=== PATIENT | male | born 1985 | race African-American/Black ===

== ENCOUNTER 2017-06-05 10:29 | Emergency (ER) | payer BC ==
[2017-06-05 11:01] VITALS: BP 130/86
[2017-06-05] MEDS ORDERED: Sodium Chloride 0.9% 10 ML Syringe FLUSH PRN ×2 (11:13→12:40)
[2017-06-05] MEDS ORDERED: Sodium Chloride 0.9% 1,000 ML IV ONE (11:13)
[2017-06-05] MEDS ORDERED: Ondansetron 4 MG/2 ML SDV IVPUSH ONE (11:13)
[2017-06-05] MEDS ORDERED: HYDROmorphone 0.5 MG/0.5 ML Syringe IVPUSH ONE ×2 (11:14→12:13)
--- NOTE | 2017-06-05 11:18 | EDM.PDOC ---
ED HPI GENERAL MEDICAL PROBLEM - General Chief Complaint: Abdominal Pain Stated Complaint: VOMITING BLOOD/STOMACH PAIN/COUGHING Time Seen by Provider: 06/05/17 11:05 Source of Information: Reports: Patient History Limitations: Reports: No Limitations - History of Present Illness INITIAL COMMENTS - FREE TEXT/NARRATIVE: Patient is a 31 year old male who presents to the E.D. complaining of severe abdominal pain, nausea, and vomiting. Patient states it came on abruptly this morning upon awakening in preparation to go to the gym. Pain is described as severe in nature generalized with waxing waning. Discomfort improves after vomiting. Patient's vomited approximately 10 times this morning. He did notice some scant blood within his emesis with initial first episode of vomiting. None since. No recent sick exposures. No diarrhea. No pain with urination, fever/ chills, chest pain, sob, or any additional complaints. Patient has not been able to keep any liquids down secondary to nausea and emesis. Abdominal Pain Score (Numeric/FACES): 10 - Related Data Allergies Allergy/AdvReac Type Severity Reaction Status Date / Time No Known Allergies Allergy Verified 06/05/17 10:51 Home Meds: Home Meds Ondansetron [Zofran ODT] 4 mg PO Q6H PRN #10 tab.dis 06/05/17 [Rx] Past Medical History - Past Health History Medical/Surgical History: Denies Medical/Surgical History Social & Family History - Family History Family Medical History: Noncontributory - Tobacco Use Smoking Status *Q: Never Smoker - Recreational Drug Use Recreational Drug Use: No ED ROS GENERAL - Review of Systems Review Of Systems: See Below Constitutional: Reports: Decreased Appetite. Denies: Fever, Chills Respiratory: Reports: No Symptoms Cardiovascular: Reports: No Symptoms GI/Abdominal: Reports: Abdominal Pain, Hematemesis (Scant), Nausea, Vomiting. Denies: Black Stool, Bloody Stool, Constipation, Diarrhea, Decreased Appetite, Difficulty Swallowing, Distension, Flatus, Hematochezia, Melena : Reports: No Symptoms Musculoskeletal: Denies: Back Pain Neurological: Denies: Dizziness, Headache ED EXAM, GI/ABD - Physical Exam Exam: See Below Exam Limited By: No Limitations General Appearance: Alert, WD/WN, Mild Distress Ears: Hearing Grossly Normal Nose: Normal Inspection Throat/Mouth: Normal Voice, No Airway Compromise Neck: Normal Inspection, Supple Respiratory/Chest: No Respiratory Distress, Lungs Clear, Normal Breath Sounds, Chest Non-Tender Cardiovascular: Normal Peripheral Pulses, Regular Rate, Rhythm GI/Abdominal Exam: Normal Bowel Sounds, Soft, Non-Tender, No Organomegaly, No Distention (Male) Exam: Deferred Extremities: Normal Inspection Neurological: Alert, Oriented, CN II-XII Intact, Normal Cognition, No Motor/ Sensory Deficits Psychiatric: Normal Affect, Normal Mood Skin Exam: Warm, Dry, Intact, Normal Color Course - Vital Signs Last Recorded V/S: Last Vital Signs Temp 97.7 F 06/05/17 10:49 Pulse 89 06/05/17 10:49 Resp 20 06/05/17 10:49 BP 130/86 06/05/17 10:49 Pulse Ox 94 L 06/05/17 10:49 - Orders/Labs/Meds Orders: Active Orders 24 hr Category Date Time Status Peripheral IV Care [RC] . DIRECTED Care 06/05/17 11:13 Active Peripheral IV Insertion Adult [OM.PC] Stat Oth 06/05/17 11:13 Ordered Labs: Laboratory Tests 06/05/17 06/05/17 06/05/17 Range/Units 11:01 11:01 14:47 WBC 3.85 L (4.23-9.07) K/mm3 RBC 7.06 H (4.63-6.08) M/mm3 Hgb 14.7 (13.7-17.5) gm/L Hct 43.3 (40.1-51.0) % MCV 61.3 L (79.0-92.2) fl MCH 20.8 L (25.7-32.2) pg MCHC 33.9 (32.2-35.5) g/dl RDW Std Deviation 35.3 (35.1-43.9) fL Plt Count 190 (163-337) K/mm3 MPV TNP Neut % (Auto) 42.0 (34.0-67.9) % Lymph % (Auto) 46.2 (21.8-53.1) % Stephens % (Auto) 9.4 (5.3-12.2) % Eos % (Auto) 1.8 (0.8-7.0) Baso % (Auto) 0.3 (0.1-1.2) % Neut # (Auto) 1.62 L (1.78-5.38) K/mm3 Lymph # (Auto) 1.78 (1.32-3.57) K/mm3 Stephens # (Auto) 0.36 (0.30-0.82) K/mm3 Eos # (Auto) 0.07 (0.04-0.54) K/mm3 Baso # (Auto) 0.01 (0.01-0.08) K/mm3 Manual Slide Review Abnormal smear Sodium 141 (136-145) mEq/L Potassium 3.6 (3.5-5.1) mEq/L Chloride 104 (98-107) mEq/L Carbon Dioxide 28 (21-32) mEq/L Anion Gap 12.6 (5-15) BUN 21 H (7-18) mg/dL Creatinine 1.1 (0.7-1.3) mg/dL Est Cr Clr Drug Dosing 103.63 mL/min Estimated GFR (MDRD) > 60 (>60) mL/min BUN/Creatinine Ratio 19.1 H (14-18) Glucose 111 H (74-106) mg/dL Calcium 9.0 (8.5-10.1) mg/dL Total Bilirubin 0.8 (0.2-1.0) mg/dL AST 29 (15-37) U/L ALT 56 (16-63) U/L Alkaline Phosphatase 70 (46-116) U/L C-Reactive Protein < 0.2 (<1.0) mg/dL Total Protein 7.5 (6.4-8.2) g/dl Albumin 4.0 (3.4-5.0) g/dl Globulin 3.5 gm/dL Albumin/Globulin Ratio 1.1 (1-2) Lipase 160 (73-393) U/L Urine Color Yellow (Yellow) Urine Appearance Clear (Clear) Urine pH 8.5 H (5.0-8.0) Ur Specific [place] 1.020 (1.005-1.030) Urine Protein Negative (Negative) Urine Glucose (UA) Negative (Negative) Urine Ketones Negative (Negative) Urine Occult Blood Negative (Negative) Urine Nitrite Negative (Negative) Urine Bilirubin Negative (Negative) Urine Urobilinogen 0.2 (0.2-1.0) Ur Leukocyte Esterase Negative (Negative) Urine RBC 0-5 (0-5) /hpf Urine WBC 0-5 (0-5) /hpf Ur Epithelial Cells 0-5 (0-5) /hpf Amorphous Sediment Few H (NOT SEEN) /hpf Urine Bacteria Few (FEW) /hpf Urine Mucus Few (FEW) /hpf Meds: Medications Discontinued Medications Generic Name Dose Route Start Last Admin Trade Name Freq PRN Reason Stop Dose Admin Fentanyl 100 mcg 06/05/17 13:06 06/05/17 13:18 Sublimaze IVPUSH 06/05/17 13:07 100 mcg ONETIME ONE Administration Fentanyl 100 mcg 06/05/17 15:27 06/05/17 15:37 Sublimaze IVPUSH 06/05/17 15:28 100 mcg ONETIME ONE Administration Hydromorphone HCl 0.5 mg 06/05/17 11:14 06/05/17 11:26 Dilaudid IVPUSH 06/05/17 11:15 0.5 mg ONETIME ONE Administration Hydromorphone HCl 0.5 mg 06/05/17 12:13 06/05/17 12:20 Dilaudid IVPUSH 06/05/17 12:14 0.5 mg ONETIME ONE Administration Sodium Chloride 1,000 mls @ 999 mls/hr 06/05/17 11:13 06/05/17 11:24 Normal Saline IV 06/05/17 12:13 999 mls/hr ONETIME ONE Administration Iopamidol 125 ml 06/05/17 12:40 06/05/17 12:46 Isovue-300 (61%) IVPUSH 06/05/17 12:41 125 ml ONETIME ONE Administration Ondansetron HCl 4 mg 06/05/17 11:13 06/05/17 11:25 Zofran IVPUSH 06/05/17 11:14 4 mg ONETIME ONE Administration Sodium Chloride 10 ml 06/05/17 11:13 06/05/17 11:25 Saline Flush FLUSH 10 ml ASDIRECTED PRN Administration Keep Vein Open Sodium Chloride 10 ml 06/05/17 12:40 06/05/17 12:46 Saline Flush FLUSH 10 ml ONETIME PRN Administration IV FLUSH - Re-Assessments/Exams Free Text/Narrative Re-Assessment/Exam: IV will be established with normal saline, Dilaudid 0.5 mg IVP, and Zofran 4 mg IVP. Initial labs and studies include CBC, chem 14, lipase, UA, CRP, x-ray of the abdomen two-view. 06/05/17 12:13 labs are pending. Patient is complaining of abdominal pain. Ordered Dilaudid 0.5 mg IVP. Nausea has subsided. 06/05/17 12:23 x-ray of the abdomen reveals few air-fluid levels, no significant stool pattern, findings questionable for gastroenteritis. Due to patient complaining of severe abdominal discomfort with nausea vomiting will go ahead and order CT of the abdomen and pelvis with oral and IV contrast. Patient unable to keep any of the oral contrast down. 06/05/17 13:06 Patient has had 1 mg of Dilaudid in total. No relief to abdominal discomfort. Ordered fentanyl 100 g IVP. 06/05/17 15:27 Patient continues to have pain to his abdomen. Ordered fentanyl 100 g IVP. 1625 Reassessment, patient is feeling much better. Pain has subsided. He has no more nausea or vomiting. He is ready to be discharged home. Departure - Departure Time of Disposition: 16:36 Disposition: Home, Self-Care 01 Condition: Good Clinical Impression: Abdominal pain Qualifiers: Abdominal location: generalized Qualified Code(s): R10.84 - Generalized abdominal pain Nausea & vomiting Qualifiers: Vomiting type: unspecified Vomiting Intractability: non-intractable Qualified Code(s): R11.2 - Nausea with vomiting, unspecified - Discharge Information Prescriptions: Ondansetron [Zofran ODT] 4 mg PO Q6H PRN #10 tab.dis PRN Reason: Nausea/Vomiting Instructions: Nausea and Vomiting, Adult, [id number], Abdominal Pain, Adult, [id number] Referrals: PCP,None [Primary Care Provider] - Forms: ED Department Discharge, ED Return to Work/School Form Additional Instructions: As discussed will have you take Zofran 1 tab every 6 hours as needed for nausea and vomiting. Suggest next 48 hours taken with a low residue diet. Push the fluids. Advance thereafter as tolerated. Return to the ED for any new or worsening symptoms. - My Orders Last 24 Hours: My Active Orders 06/05/17 11:13 Peripheral IV Care [RC] . DIRECTED Peripheral IV Insertion Adult [OM.PC] Stat - Assessment/Plan Last 24 Hours: My Active Orders 06/05/17 11:13 Peripheral IV Care [RC] . DIRECTED Peripheral IV Insertion Adult [OM.PC] Stat
--- NOTE | 2017-06-05 12:05 | CR ---
Abdomen: Supine and upright views of the abdomen were obtained. Comparison: No previous study. Several slight air-fluid levels are noted within small bowel within the left upper abdomen. Findings may represent focal ileus or less likely early small bowel obstruction. Bowel gas pattern is otherwise unremarkable. No free air is seen. Bony structures are unremarkable. No abnormal calcifications are seen. Impression: 1. Slightly prominent air-filled loops of small bowel within the left upper abdomen with air-fluid levels. Differential as described above. Diagnostic code #3
[2017-06-05] MEDS ORDERED: Iopamidol 612 MG/ML 150 ML Bottle IVPUSH ONE (12:40)
[2017-06-05] MEDS ORDERED: fentaNYL 100 MCG/2 ML SDV IVPUSH ONE ×2 (13:06→15:27)
--- NOTE | 2017-06-05 13:46 | CT ---
CT abdomen and pelvis Technique: Multiple axial sections were obtained from above the dome of the diaphragm inferiorly through the pubic symphysis. Intravenous contrast was utilized. There is only a small amount of oral contrast present within the stomach. Patient could not tolerate adequate oral contrast and therefore bowel evaluation is limited. Findings: Small portion of visualized lung bases shows nothing acute. Liver shows no focal abnormality. Spleen appears within normal limits. Kidneys show symmetric contrast enhancement without hydronephrosis or mass. Delayed images shows contrast within the distal ureters and bladder. Aorta shows no aneurysmal dilatation. No retroperitoneal adenopathy or mesenteric abnormalities are seen. No discrete pelvic mass or adenopathy is seen. Appendix not well evaluated because of the lack of oral contrast. Several loops of mildly prominent air-filled small bowel are seen within the anterior and mid abdomen which is similar to the prior plain film study. There is some fecal material being seen within a portion of this mildly dilated small bowel. This dilated bowel does not appear to represent a definite obstruction but could be caused by obstipation or ileus. No free fluid is seen. No discrete inflammatory change noted. Impression: 1. Less than optimal bowel evaluation due to patient being unable to ingest adequate oral contrast. 2. Lack of oral contrast makes evaluation of the appendix difficult. 3. Slightly dilated small bowel within the mid anterior abdomen containing some fecal material. As mentioned above, this does not appear to be obstructive but could be caused by obstipation or ileus. Follow-up plain film study could be obtained to make sure findings do not worsen. 4. No additional abnormality is definitely appreciated. Diagnostic code #3
== END 2017-06-05 17:00 | disposition home or self-care (01) ==
LOC: JD.ED 10:29
DX: R10.84 Generalized abdominal pain (principal); R11.2 Nausea with vomiting, unspecified
CPT/HCPCS: 36415; 74020; 74177; 80053; 81001; 83690; 85025; 86140; 96361; 96374; 96375; 96376; 99285; J1170; J2405; J3010; J7040; J7050; Q9967

== ENCOUNTER 2017-06-05 19:39 | Observation (INO) | payer BC ==
[2017-06-05] MEDS ORDERED: fentaNYL 100 MCG/2 ML SDV IVPUSH ONE (19:55)
[2017-06-05] MEDS ORDERED: Sodium Chloride 0.9% 1,000 ML IV ONE (19:55)
[2017-06-05] MEDS ORDERED: diphenhydrAMINE 50 MG/ML SDV IVPUSH ONE (19:56)
[2017-06-05] MEDS ORDERED: Metoclopramide 10 MG/2 ML SDV IVPUSH ONE (19:56)
--- NOTE | 2017-06-05 20:02 | EDM.PDOC ---
ED HPI GENERAL MEDICAL PROBLEM - General Chief Complaint: Abdominal Pain Stated Complaint: ABDOMINAL PAIN AND VOMITTING Time Seen by Provider: 06/05/17 19:53 Source of Information: Reports: Patient History Limitations: Reports: No Limitations - History of Present Illness INITIAL COMMENTS - FREE TEXT/NARRATIVE: Patient is a 31-year-old male who presents to the ED complaining of generalized abdominal pain with nausea and vomiting. Patient was recently evaluated in the ED by me and discharged home approximately 2 hours ago. Labs, x-ray of the abdomen, and CT of the abdomen were obtained. X-ray of the abdomen did reveal slightly prominent air-filled loops of small bowel with the left upper abdomen with air-fluid levels. Differential diagnosis includes focal ileus or less likely early small bowel obstruction. CT the abdomen and pelvis was less optimal due to patient's inability to take oral contrast. CT did reveal slightly dilated small bowel with the mid anterior abdomen containing some fecal material. This does not appear to be obstructive but could be caused by aspiration ileus. Patient was treated with IV pain medications and Zofran along with some fluids. Symptoms improved. The patient went home pain free with no nausea or vomiting. At approximately 1830 patient sipped on some Gatorade and instantly started to vomit with severe pain to his abdomen. Pain is severe sharp in nature generalized with no radiation. Abdominal Pain Score (Numeric/FACES): 10 - Related Data Allergies Allergy/AdvReac Type Severity Reaction Status Date / Time No Known Allergies Allergy Verified 06/05/17 19:49 Home Meds: Home Meds Ondansetron [Zofran ODT] 4 mg PO Q6H PRN #10 tab.dis 06/05/17 [Rx] Past Medical History - Past Health History Medical/Surgical History: Denies Medical/Surgical History Social & Family History - Family History Family Medical History: Noncontributory - Tobacco Use Smoking Status *Q: Never Smoker - Recreational Drug Use Recreational Drug Use: No ED ROS GENERAL - Review of Systems Review Of Systems: ROS reveals no pertinent complaints other than HPI. ED EXAM, GI/ABD - Physical Exam Exam: See Below Exam Limited By: No Limitations General Appearance: Alert, WD/WN, Mild Distress Ears: Hearing Grossly Normal Nose: Normal Inspection Throat/Mouth: Normal Voice, No Airway Compromise Neck: Normal Inspection, Supple Respiratory/Chest: No Respiratory Distress, Lungs Clear, Normal Breath Sounds, Chest Non-Tender Cardiovascular: Normal Peripheral Pulses, Regular Rate, Rhythm GI/Abdominal Exam: Soft, No Organomegaly, No Distention, Tender (Generalized throughout), Abnormal Bowel Sounds (Hypoactive) (Male) Exam: Deferred (No pain) Neurological: Alert, Oriented, CN II-XII Intact, Normal Cognition, No Motor/ Sensory Deficits Psychiatric: Normal Affect, Normal Mood Skin Exam: Warm, Dry, Intact, Normal Color Course - Vital Signs Last Recorded V/S: Last Vital Signs Temp 97.9 F 06/06/17 11:32 Pulse 66 06/06/17 11:32 Resp 18 06/06/17 11:32 BP 115/67 06/06/17 11:32 Pulse Ox 97 06/06/17 11:32 - Orders/Labs/Meds Orders: Active Orders 24 hr Category Date Time Status Peripheral IV Care [RC] Q2HR Care 06/05/17 19:55 Active Sodium Chloride 0.9% [Saline Flush] Med 06/05/17 19:55 Active 10 ml FLUSH ASDIRECTED PRN NG [Nasogastric Orogastric Tube Insertion] [OM.PC] Oth 06/05/17 20:52 Ordered Routine Peripheral IV Insertion Adult [OM.PC] Stat Oth 06/05/17 19:55 Ordered Medication Orders Acetaminophen (Tylenol) 650 mg RECTAL Q4H PRN PRN Reason: Pain (mild 1-3) Benzocaine (Hurricaine 20% [place]) 2 ml MUCMEM Q4H PRN PRN Reason: Throat numbing/pain from NG Enoxaparin Sodium (Lovenox) 40 mg SUBCUT Q24H [facility] Last Admin: 06/05/17 23:12 Dose: 40 mg Potassium Chloride 10 meq/ (Premix) 100 mls @ 100 mls/hr IV Q1H INO Stop: 06/06/17 17:14 Last Admin: 06/06/17 15:28 Dose: 100 mls/hr Infusion: 06/06/17 15:19 Dose: 100 mls/hr Admin: 06/06/17 14:19 Dose: 100 mls/hr Sodium Chloride (Normal Saline) 1,000 mls @ 100 mls/hr IV ASDIRECTED [facility] Last Admin: 06/06/17 14:19 Dose: 100 mls/hr Ketorolac Tromethamine (Toradol) 30 mg IV Q6H PRN PRN Reason: Pain (moderate 4-6) Stop: 06/10/17 21:41 Last Admin: 06/06/17 03:11 Dose: 30 mg Morphine Sulfate (Morphine) 2 mg IVPUSH Q2H PRN PRN Reason: Pain (severe 7-10) Stop: 06/06/17 21:44 Ondansetron HCl (Zofran) 4 mg IV Q4H PRN PRN Reason: Nausea/Vomiting Pantoprazole Sodium (Protonix Iv) 40 mg IVPUSH DAILY INO Last Admin: 06/06/17 09:32 Dose: 40 mg Admin: 06/05/17 23:12 Dose: 40 mg Sodium Chloride (Saline Flush) 10 ml FLUSH ASDIRECTED PRN PRN Reason: Keep Vein Open Last Admin: 06/05/17 20:23 Dose: 10 ml Meds: Medications Generic Name Dose Route Start Last Admin Trade Name Freq PRN Reason Stop Dose Admin Acetaminophen 650 mg 06/05/17 21:40 Tylenol RECTAL Q4H PRN Pain (mild 1-3) Benzocaine 2 ml 06/05/17 22:39 Hurricaine 20% [place] MUCMEM Q4H PRN Throat numbing/pain from NG Enoxaparin Sodium 40 mg 06/05/17 22:00 06/05/17 23:12 Lovenox SUBCUT 40 mg Q24H INO Administration Potassium Chloride 10 meq/ 100 mls @ 100 mls/hr 06/06/17 13:15 06/06/17 15:28 Premix IV 06/06/17 17:14 100 mls/hr Q1H INO Administration Sodium Chloride 1,000 mls @ 100 mls/hr 06/06/17 13:45 06/06/17 14:19 Normal Saline IV 100 mls/hr ASDIRECTED INO Administration Ketorolac Tromethamine 30 mg 06/05/17 21:40 06/06/17 03:11 Toradol IV 06/10/17 21:41 30 mg Q6H PRN Administration Pain (moderate 4-6) Morphine Sulfate 2 mg 06/05/17 21:40 Morphine IVPUSH 06/06/17 21:44 Q2H PRN Pain (severe 7-10) Ondansetron HCl 4 mg 06/05/17 21:40 Zofran IV Q4H PRN Nausea/Vomiting Pantoprazole Sodium 40 mg 06/05/17 22:00 06/06/17 09:32 Protonix Iv IVPUSH 40 mg DAILY INO Administration Sodium Chloride 10 ml 06/05/17 19:55 06/05/17 20:23 Saline Flush FLUSH 10 ml ASDIRECTED PRN Administration Keep Vein Open Discontinued Medications Generic Name Dose Route Start Last Admin Trade Name Freq PRN Reason Stop Dose Admin Diphenhydramine HCl 25 mg 06/05/17 19:56 06/05/17 20:17 Benadryl IVPUSH 06/05/17 19:57 25 mg ONETIME ONE Administration Fentanyl 100 mcg 06/05/17 19:55 06/05/17 20:22 Sublimaze IVPUSH 06/05/17 19:56 100 mcg ONETIME ONE Administration Sodium Chloride 1,000 mls @ 250 mls/hr 06/05/17 19:55 06/05/17 20:15 Normal Saline IV 06/05/17 23:54 250 mls/hr ONETIME ONE Administration Influenza Virus Vaccine 1 each 06/05/17 22:35 Pharmacy To Dose - Influenza Vaccine IM 06/05/17 22:36 ONETIME ONE Influenza Virus Vaccine 60 mcg 06/06/17 09:00 Flulaval Quad [id number] IM 06/06/17 09:01 .ONCE ONE Metoclopramide HCl 7.5 mg 06/05/17 19:56 06/05/17 20:20 Reglan IVPUSH 06/05/17 19:57 7.5 mg ONETIME ONE Administration - Re-Assessments/Exams Free Text/Narrative Re-Assessment/Exam: IV established with normal saline, Reglan 7.5 mg IVP, Benadryl 25 mg IVP, and fentanyl 100mcq IVP. We'll obtain a two-view of the abdomen to evaluate for changes in her and stool pattern. X-ray of the abdomen: Slight increasing gaseous dilation within the mid abdomen of presumed small bowel. These findings are somewhat confusing when correlating with previous exams. Current findings suggest the possibility of worsening closed loop construction, although previous CT study does not definetaly correlate to this findings. Consideration could be made for placement of nasograstric tube with oral contrast being placed and repeat CT exam performed to try and clarify. 06/05/17 20:51 , suggested admission to medical for management of gastroenteritis. Agrees with ng placement and decompression. 06/05/17 21:[address] Dwyer and Adolfo ESPINOZA, they have agreed to admit the patient for intractable abdominal pain with nausea vomiting. MCG will be obtained. MCG conducted patient meets observation status. Departure - Departure Time of Disposition: 21:38 Disposition: Refer to Observation Condition: Good Clinical Impression: Ileus, unspecified, Gastroenteritis Abdominal pain Qualifiers: Abdominal location: generalized Qualified Code(s): R10.84 - Generalized abdominal pain - Discharge Information - My Orders Last 24 Hours: My Active Orders 06/05/17 19:55 Peripheral IV Care [RC] Q2HR Sodium Chloride 0.9% [Saline Flush] 10 ml FLUSH ASDIRECTED PRN Peripheral IV Insertion Adult [OM.PC] Stat 06/05/17 20:52 NG [Nasogastric Orogastric Tube Insertion] [OM.PC] Routine - Assessment/Plan Last 24 Hours: My Active Orders 06/05/17 19:55 Peripheral IV Care [RC] Q2HR Sodium Chloride 0.9% [Saline Flush] 10 ml FLUSH ASDIRECTED PRN Peripheral IV Insertion Adult [OM.PC] Stat 06/05/17 20:52 NG [Nasogastric Orogastric Tube Insertion] [OM.PC] Routine
[2017-06-05] MEDS: Sodium Chloride 0.9% 10 ML Syringe FLUSH PRN (20:23)
--- NOTE | 2017-06-05 20:30 | CR ---
Abdomen: Supine and upright views of the abdomen were obtained. Comparison: Previous abdominal CT performed earlier in the same day as well as abdominal x-ray performed on the same day. Continued air-filled bowel is seen within the mid abdomen. This is slightly more prominent than on previous abdominal x-ray. This presumably is within small bowel. Contrast is seen within the bladder from recent CT exam. No free air is seen. Bony structures are unremarkable. Impression: 1. Slight increasing gaseous dilatation within the mid abdomen of presumed small bowel. These findings are somewhat confusing when correlating with previous exams. Current findings suggest the possibility of worsening closed-loop obstruction, although previous CT study does not definitely correlate to this finding. Consideration could be made for placement of nasogastric tube with oral contrast being placed and repeat CT exam performed to try and clarify. Diagnostic code #3
[2017-06-05] MEDS ORDERED: Acetaminophen 650 MG Supp RECTAL PRN (21:40)
[2017-06-05] MEDS ORDERED: Ketorolac 30 MG/ML SDV IV PRN (21:40)
[2017-06-05] MEDS ORDERED: Morphine 2 MG/ML Syringe IVPUSH PRN (21:40)
[2017-06-05] MEDS ORDERED: Ondansetron 4 MG/2 ML SDV IV PRN (21:40)
[2017-06-05] MEDS ORDERED: Enoxaparin 30 MG/0.3 ML Syringe SUBCUT SCH (21:45)
--- NOTE | 2017-06-05 22:06 | PCM.HP ---
H&P History of Present Illness - General Date of Service: 06/05/17 Admit Problem/Dx: Admission Diagnosis/Problem Admission Diagnosis/Problem Abdominal pain with vomiting Source of Information: Patient, Old Records, Provider, RN, RN Notes Reviewed History Limitations: Reports: No Limitations - History of Present Illness Initial Comments - Free Text/Narative: Tete Gonzalez is a 21 year old male who presented to our ED today complaining of generalized abdominal pain with nausea and vomiting. He was evaluated and the symptoms appeared to resolve so he was sent home. During this inital visit an X- ray of the abdomen did reveal slightly prominent air-filled loops of small bowel within the left upper abdomen with air-fluid levels. Differential diagnosis includes focal ileus or less likely early small bowel obstruction. CT of the abdomen and pelvis was obtained, however was less than optimal as the patient was unable to take oral contrast. CT revealed slightly dilated small bowel bowel within the mid anterior abdomen containing some fecal material. This does not appear to be obstructive but could be cause by an aspiration ileus. Labs were obtained: White blood cell 3.85 and low. Hemoglobin 14.7. Hematocrit 43.3. He is slightly microcytic at 61.3. Platelet count 190, 000. Neutrophils 42%. Sodium 191. Potassium 3.6. Chloride 104. Anion gap 12.6. BUN high at 21. Creatinine 1.1. EGFR greater than 60. AST 29 ALT 56 alkaline phosphatase 70. CRP less than 0.2. Albumin 4.0. UA was negative.. The patient was treated at that time with IV pain meds and Zofran, along with some fluids. Symptoms resolved and the patient went home without any nausea or vomiting. At approximately 1830 the patient drinks some Gatorade and started to vomit with severe pain in his abdomen. He was then he returned to the ED. Pain on his return to the ED was said to be severe and sharp in nature. He was generalized to the entire abdomen does not radiate. He was afebrile and the ED. Pulse was 89. Respirations 20. BP 139/89. Pulse ox 99% on room air. He is given Reglan 7.5 mg IVP, Benadryl 25 mg IVP, and fentanyl 100 MCG IVP. A 2 view abdominal x-ray was obtained and interpreted by Dr. Magaña as showing slightly increasing gaseous dilation was in the mid abdomen ppresumed small bowel. These findings are somewhat confusing correlating with previous exams. Current findings suggest possibility of worsening closed-loop obstruction, although previous CT study does not definitively correlate to this finding. Consideration could be made for placement of NG tube with oral contrast been placed and repeat CT scan performed to try and clarify. Surgeon instrument/control technician Dr. Fisher, was contacted by provider and suggested admission to medical floor for management of gastroenteritis. He agrees with NG placement and decompression. NG tube was placed in ED. He was subsequently admitted to the medical floor as an observation patient. He is a full code. He has no primary care provider. Abdominal Pain Score (Numeric/FACES): 0 - Related Data Allergies/Adverse Reactions: Allergies Allergy/AdvReac Type Severity Reaction Status Date / Time No Known Allergies Allergy Verified 06/05/17 19:49 Home Medications: Home Meds Ondansetron [Zofran ODT] 4 mg PO Q6H PRN #10 tab.dis 06/05/17 [Rx] Past Medical History - Past Health History Medical/Surgical History: Denies Medical/Surgical History Social & Family History - Family History Family Medical History: Noncontributory - Tobacco Use Smoking Status *Q: Never Smoker - Recreational Drug Use Recreational Drug Use: No H&P Review of Systems - Review of Systems: Review Of Systems: See Below General: Reports: No Symptoms. Denies: Fever, Chills, Malaise, Weakness HEENT: Reports: No Symptoms. Denies: Ear Pain, Eye Pain, Headaches, Sore Throat , Visual Changes Pulmonary: Reports: No Symptoms. Denies: Shortness of Breath, Wheezing, Pleuritic Chest Pain, Cough, Sputum Cardiovascular: Reports: No Symptoms. Denies: Chest Pain, Palpitations, Dyspnea on Exertion, Edema, Lightheadedness, Syncope Gastrointestinal: Reports: Abdominal Pain (Resolved currently), Decreased Appetite, Nausea, Vomiting. Denies: Black Stool, Constipation, Diarrhea, Melena Genitourinary: Reports: No Symptoms. Denies: Dysuria, Frequency, Burning, Pain , Urgency Musculoskeletal: Reports: No Symptoms. Denies: Neck Pain, Shoulder Pain, Arm Pain, Back Pain, Hand Pain, Leg Pain, Muscle Pain, Muscle Stiffness Skin: Reports: No Symptoms. Denies: Cyanosis, Jaundice, Mottled Psychiatric: Reports: No Symptoms. Denies: Confusion, Depression, Mood Lability , Anxiety Neurological: Reports: No Symptoms. Denies: Confusion, Dizziness, Headache, Numbness, Syncope, Tingling, Trouble Speaking, Difficulty Walking, Weakness Hematologic/Lymphatic: Reports: No Symptoms Immunologic: Reports: No Symptoms Review of Systems Comment:: Patient reports pain is controlled at this time. He denies any current concerns. Exam - Exam Exam: See Below - Vital Signs Vital Signs: Last Vital Signs Temp 97.8 F 06/05/17 19:49 Pulse 89 06/05/17 19:49 Resp 20 06/05/17 19:49 BP 139/89 06/05/17 19:49 Pulse Ox 99 06/05/17 19:49 Weight: 179 lb - Exam Quality Assessment: DVT Prophylaxis General: Alert, Oriented, Cooperative HEENT: Conjunctiva Clear, EACs Clear, EOMI, Hearing Intact, Mucosa Moist & [place] , Nares Patent, Normal Nasal Septum, Posterior Pharynx Clear, Pupils Equal, Pupils Reactive, TMs Clear Neck: Supple, Trachea Midline. No: JVD Lungs: Clear to Auscultation, Normal Respiratory Effort Cardiovascular: Regular Rate, Regular Rhythm GI/Abdominal Exam: Normal Bowel Sounds, Soft, Non-Tender, No Organomegaly, No Distention, No Abnormal Bruit, No Mass, Pelvis Stable (Male) Exam: Deferred Rectal (Males) Exam: Deferred Back Exam: Normal Inspection, Full Range of Motion Extremities: Normal Inspection, Normal Range of Motion, Non-Tender, No Pedal Edema, Normal Capillary Refill Peripheral Pulses: 2+: Posterior Tibial (L), Posterior Tibial (R), Dorsalis Pedis (R), 3+: Radial (L), Radial (R), Dorsalis Pedis (L) Skin: Warm, Dry, Intact Neurological: Cranial Nerves Intact Neuro Extensive - Mental Status: Alert, Oriented x3, Normal Mood/Affect, Normal Cognition, Memory Intact Neuro Extensive - Motor, Sensory, Reflexes: CN II-XII Intact, Normal Gait Psychiatric: Alert, Normal Affect, Normal Mood Physical Exam Comments:: Patient examined while still in the ED. Patient had yet to have NG tube placed. Importance of NG tube was discussed with patient and he agrees to this procedure. Explained course of care with patient. Labs are essentially unremarkable. We'll continue to monitor. *Q Meaningful Use (ADM) - VTE *Q VTE Criteria *Q: - Stroke *Q Stroke Criteria *Q: - AMI *Q AMI Criteria *Q: - Problem List (1) Abdominal pain SNOMED Code(s): 11476263 ICD Code: R10.9 - UNSPECIFIED ABDOMINAL PAIN Status: Acute Priority: High Current Visit: Yes Qualifiers: Abdominal location: generalized Qualified Code(s): R10.84 - Generalized abdominal pain (2) Gastroenteritis SNOMED Code(s): 07791649 ICD Code: K52.9 - NONINFECTIVE GASTROENTERITIS AND COLITIS, UNSPECIFIED Status: Suspected Priority: High Current Visit: Yes (3) Ileus, unspecified SNOMED Code(s): 96067677 ICD Code: K56.7 - ILEUS, UNSPECIFIED Status: Acute Priority: High Current Visit: Yes (4) Nausea & vomiting SNOMED Code(s): 29411572 ICD Code: R11.2 - NAUSEA WITH VOMITING, UNSPECIFIED Status: Acute Priority: High Current Visit: Yes Qualifiers: Vomiting type: unspecified Vomiting Intractability: non-intractable Qualified Code(s): R11.2 - Nausea with vomiting, unspecified Problem List Initiated/Reviewed/Updated: Yes Orders Last 24hrs: Active Orders 24 hr Category Date Time Status Patient Status [ADT] Routine ADT 06/05/17 21:41 Active Ambulate [RC] ASDIRECTED Care 06/05/17 21:40 Active Ambulate [RC] PER UNIT ROUTINE Care 06/05/17 21:42 Active Antiembolic Devices [RC] PER UNIT ROUTINE Care 06/05/17 21:50 Active Height and Weight [RC] DAILY Care 06/05/17 21:40 Active Intake and Output [RC] QSHIFT Care 06/05/17 21:42 Active May Shower [RC] ASDIRECTED Care 06/05/17 21:40 Active Oxygen Therapy [RC] PRN Care 06/05/17 21:41 Active Up ad Dhara [RC] ASDIRECTED Care 06/05/17 21:40 Active VTE/DVT Education [RC] PER UNIT ROUTINE Care 06/05/17 21:41 Active Vital Signs [RC] Q4H Care 06/05/17 21:41 Active Consult to Case Management [CONS] Routine Cons 06/05/17 21:40 Active Consult to Nutrition Services Assistant [CONS] Routine Cons 06/05/17 21:40 Active BASIC METABOLIC PANEL,BMP [CHEM] AM Lab 06/06/17 05:11 Ordered CBC WITH AUTO DIFF [HEME] AM Lab 06/06/17 05:11 Ordered MAGNESIUM [CHEM] AM Lab 06/06/17 05:11 Ordered Acetaminophen [Tylenol] Med 06/05/17 21:40 Ordered 650 mg RECTAL Q4H PRN Enoxaparin [Lovenox] Med 06/05/17 21:45 Ordered 30 mg SUBCUT DAILY Ketorolac [Toradol] Med 06/05/17 21:40 Ordered 30 mg IV Q6H PRN Morphine Med 06/05/17 21:40 Active 2 mg IVPUSH Q2H PRN Ondansetron [Zofran] Med 06/05/17 21:40 Active 4 mg IV Q4H PRN Pantoprazole [ProTONIX IV] Med 06/05/17 22:00 Ordered 40 mg IVPUSH DAILY Antiembolic Hose [OM.PC] Per Unit Routine Oth 06/05/17 21:42 Ordered Resuscitation Status Routine Resus Stat 06/05/17 21:40 Ordered Medication Orders Acetaminophen (Tylenol) 650 mg RECTAL Q4H PRN PRN Reason: Pain (mild 1-3) Enoxaparin Sodium (Lovenox) 30 mg SUBCUT DAILY INO Sodium Chloride (Normal Saline) 1,000 mls @ 250 mls/hr IV ONETIME ONE Stop: 06/05/17 23:54 Last Admin: 06/05/17 20:15 Dose: 250 mls/hr Ketorolac Tromethamine (Toradol) 30 mg IV Q6H PRN PRN Reason: Pain (moderate 4-6) Morphine Sulfate (Morphine) 2 mg IVPUSH Q2H PRN PRN Reason: Pain (severe 7-10) Stop: 06/06/17 21:44 Ondansetron HCl (Zofran) 4 mg IV Q4H PRN PRN Reason: Nausea/Vomiting Pantoprazole Sodium (Protonix Iv) 40 mg IVPUSH DAILY INO Sodium Chloride (Saline Flush) 10 ml FLUSH ASDIRECTED PRN PRN Reason: Keep Vein Open Last Admin: 06/05/17 20:23 Dose: 10 ml Assessment/Plan Comment:: I/P: Acute: Abdominial pain -Suspect viral gastroenteritis -Suspect illius -Failed treatment once after ED discharge -Abdominal pain, N&V -NG tube placed in ED for decompression- good output in ED -Nursing concerned tube may be displaced. X-ray ordered to confirm placement -NPO -Zofran for nausea -Hurricane spray for NG tube discomfort -IV fluids as indicated -WBC low at 3.85 -CRP >0.2 -Pain medications as indicated -Ambulate as tolerated -General surgery consulted in ED and report pt. can be medically managed at this point Chronic: None Plan: Admit to medical floor for observation CM/SW for discharge planning Routine AM labs DVT/PE prophylaxis GI prophylaxis Patient is very mobile - hold off PT/OT for now Other orders as indicated above Code status: Full Code; No PCP.
[2017-06-05] MEDS ORDERED: Benzocaine 20% Oral Spray 59.2 ML Canister MUCMEM PRN (22:39)
[2017-06-05] MEDS: Pantoprazole 40 MG Vial IVPUSH SCH (23:12)
[2017-06-05] MEDS: Enoxaparin 40 MG/0.4 ML Syringe SUBCUT SCH (23:12)
--- NOTE | 2017-06-06 08:21 | CR ---
Chest: Portable view of the chest is obtained. Comparison: No prior study. Heart size and mediastinum are normal. Nasogastric tube is seen with tip being coiled within the stomach. Lungs are clear. Bony structures are grossly intact. Impression: 1. Nasogastric tube in satisfactory position. 2. Nothing acute is appreciated on portable chest x-ray. Diagnostic code #2 I agree with preliminary report issued by [facility] ([facility] preliminary report dictated on 06/06/17, 12:26 AM Central Time)
[2017-06-06] MEDS ORDERED: FLU Vacc QS 2017-18 (6mos UP)/PF 60 MCG/0.5 ML Syringe IM ONE (09:00)
[2017-06-06] MEDS: Pantoprazole 40 MG Vial IVPUSH SCH (09:32)
[2017-06-06] MEDS: Potassium Chloride 10 MEQ in Premix Bag 1 BAG IV SCH ×4 (14:19→17:28)
[2017-06-06] MEDS: Sodium Chloride 0.9% 1,000 ML IV SCH ×2 (14:19→23:56)
--- NOTE | 2017-06-06 15:54 | PCM.PN ---
<Adolfo Brumfield - Last Filed: 06/06/17 15:48> - General Info Date of Service: 06/06/17 Admission Dx/Problem (Free Text): Admission Diagnosis/Problem Admission Diagnosis/Problem Abdominal pain with vomiting Functional Status: Reports: Pain Controlled, Tolerating Diet, Ambulating, Urinating. Denies: New Symptoms - Review of Systems General: Reports: No Symptoms HEENT: Reports: No Symptoms Pulmonary: Reports: No Symptoms Cardiovascular: Reports: No Symptoms Gastrointestinal: Reports: No Symptoms Genitourinary: Reports: No Symptoms Musculoskeletal: Reports: No Symptoms Skin: Reports: No Symptoms Neurological: Reports: No Symptoms Psychiatric: Reports: No Symptoms Systems Review Comment:: Patient has no complaint at this time. Denies any abdominal pain. He has been eating ice chips for a few hours now with no abdominal pain. His NG tube came out throughout the night. He is unsure how it came out. - Patient Data Vitals - Most Recent: Last Vital Signs Temp 97.9 F 06/06/17 11:32 Pulse 66 06/06/17 11:32 Resp 18 06/06/17 11:32 BP 115/67 06/06/17 11:32 Pulse Ox 97 06/06/17 11:32 Weight - Most Recent: 77.156 kg I&O - Last 24 Hours: Intake & Output 06/06/17 06/06/17 06/06/17 06:59 14:59 22:59 Intake Total 0 Output Total 400 Balance -400 Lab Results Last 24 Hours: Laboratory Results - last 24 hr 06/06/17 06/06/17 06/06/17 Range/Units 05:06 05:06 05:06 WBC 8.27 (4.23-9.07) K/mm3 RBC 6.60 H (4.63-6.08) M/mm3 Hgb 13.7 (13.7-17.5) gm/L Hct 40.2 (40.1-51.0) % MCV 60.9 L (79.0-92.2) fl MCH 20.8 L (25.7-32.2) pg MCHC 34.1 (32.2-35.5) g/dl RDW Std Deviation 34.2 L (35.1-43.9) fL Plt Count 191 (163-337) K/mm3 MPV TNP Neut % (Auto) 74.3 H (34.0-67.9) % Lymph % (Auto) 17.4 L (21.8-53.1) % [place] % (Auto) 8.2 (5.3-12.2) % Eos % (Auto) 0 L (0.8-7.0) Baso % (Auto) 0.0 L (0.1-1.2) % Neut # (Auto) 6.14 H (1.78-5.38) K/mm3 Lymph # (Auto) 1.44 (1.32-3.57) K/mm3 [place] # (Auto) 0.68 (0.30-0.82) K/mm3 Eos # (Auto) 0.00 L (0.04-0.54) K/mm3 Baso # (Auto) 0.00 L (0.01-0.08) K/mm3 Manual Slide Review Abnormal smear Sodium 142 (136-145) mEq/L Potassium 3.3 L (3.5-5.1) mEq/L Chloride 106 (98-107) mEq/L Carbon Dioxide 24 (21-32) mEq/L Anion Gap 15.3 H (5-15) BUN 11 (7-18) mg/dL Creatinine 1.0 (0.7-1.3) mg/dL Est Cr Clr Drug Dosing 114.00 mL/min Estimated GFR (MDRD) > 60 (>60) mL/min BUN/Creatinine Ratio 11.0 L (14-18) Glucose 104 (74-106) mg/dL Calcium 8.9 (8.5-10.1) mg/dL Magnesium 1.8 (1.8-2.4) mg/dl C-Reactive Protein < 0.2 (<1.0) mg/dL Med Orders - Current: Current Medications Acetaminophen (Tylenol) 650 mg RECTAL Q4H PRN PRN Reason: Pain (mild 1-3) Benzocaine (Hurricaine 20% Novi) 2 ml MUCMEM Q4H PRN PRN Reason: Throat numbing/pain from NG Enoxaparin Sodium (Lovenox) 40 mg SUBCUT Q24H INO Last Admin: 06/05/17 23:12 Dose: 40 mg Potassium Chloride 10 meq/ (Premix) 100 mls @ 100 mls/hr IV Q1H INO Stop: 06/06/17 17:14 Last Admin: 06/06/17 15:28 Dose: 100 mls/hr Sodium Chloride (Normal Saline) 1,000 mls @ 100 mls/hr IV ASDIRECTED [facility] Last Admin: 06/06/17 14:19 Dose: 100 mls/hr Ketorolac Tromethamine (Toradol) 30 mg IV Q6H PRN PRN Reason: Pain (moderate 4-6) Stop: 06/10/17 21:41 Last Admin: 06/06/17 03:11 Dose: 30 mg Morphine Sulfate (Morphine) 2 mg IVPUSH Q2H PRN PRN Reason: Pain (severe 7-10) Stop: 06/06/17 21:44 Ondansetron HCl (Zofran) 4 mg IV Q4H PRN PRN Reason: Nausea/Vomiting Pantoprazole Sodium (Protonix Iv) 40 mg IVPUSH DAILY [facility] Last Admin: 06/06/17 09:32 Dose: 40 mg Sodium Chloride (Saline Flush) 10 ml FLUSH ASDIRECTED PRN PRN Reason: Keep Vein Open Last Admin: 06/05/17 20:23 Dose: 10 ml Discontinued Medications Diphenhydramine HCl (Benadryl) 25 mg IVPUSH ONETIME ONE Stop: 06/05/17 19:57 Last Admin: 06/05/17 20:17 Dose: 25 mg Fentanyl (Sublimaze) 100 mcg IVPUSH ONETIME ONE Stop: 06/05/17 19:56 Last Admin: 06/05/17 20:22 Dose: 100 mcg Sodium Chloride (Normal Saline) 1,000 mls @ 250 mls/hr IV ONETIME ONE Stop: 06/05/17 23:54 Last Admin: 06/05/17 20:15 Dose: 250 mls/hr Influenza Virus Vaccine (Pharmacy To Dose - Influenza Vaccine) 1 each IM ONETIME ONE Stop: 06/05/17 22:36 Influenza Virus Vaccine (Flulaval Quad [id number]) 60 mcg IM .ONCE ONE Stop: 06/06/17 09:01 Metoclopramide HCl (Reglan) 7.5 mg IVPUSH ONETIME ONE Stop: 06/05/17 19:57 Last Admin: 06/05/17 20:20 Dose: 7.5 mg - Exam Quality Assessment: DVT Prophylaxis General: Alert, Oriented, Cooperative HEENT: Pupils Equal, Pupils Reactive, Mucous Membr. Moist/[place] Neck: Supple, Trachea Midline. No: JVD Lungs: Clear to Auscultation, Normal Respiratory Effort Cardiovascular: Regular Rate, Regular Rhythm, No Murmurs GI/Abdominal Exam: Normal Bowel Sounds, Soft, Non-Tender, No Organomegaly, No Distention, No Abnormal Bruit, No Mass, Pelvis Stable (Male) Exam: Deferred Back Exam: Normal Inspection, Full Range of Motion Extremities: Normal Inspection, Normal Range of Motion, Non-Tender, No Pedal Edema, Normal Capillary Refill, Arm Pain (Mild- From IV potassium. I advised patient this is a common complaint. IV is patent and running well.) Peripheral Pulses: 3+: Radial (L), Radial (R), Posterior Tibial (L), Posterior Tibial (R), Dorsalis Pedis (L), Dorsalis Pedis (R) Skin: Warm, Dry, Intact Neurological: No New Focal Deficit Psy/Mental Status: Alert, Normal Affect, Normal Mood Physical Findings Comments:: Patient is examined while sitting in hospital bed. He is not currently having any abdominal pain. He was started on ice chips earlier and these have been well-tolerated. He has been walking frequently. We will advance his diet slowly, as I'm concerned he will regress simply go to rapidly. Because the patient is improving I will hold off on the CT scan of his abdomen. We were considering a CT scan with contrast this morning, as the patient was unable to tolerate the contrast in the ED last night. We will continue to advance his diet slowly and if he were to regress we would at that time consider the CT scan as a priority. His potassium was found to be 3.3 today. We has been supplementing this via IV, as the patient was nothing by mouth earlier. Patient will likely need to be monitored throughout the night and I'm hopeful for discharge tomorrow, pending the patient is able to tolerate his advanced diet. - Problem List & Annotations (1) Abdominal pain SNOMED Code(s): 43582804 Code(s): R10.9 - UNSPECIFIED ABDOMINAL PAIN Status: Acute Priority: High Current Visit: Yes QualifierTitle: Abdominal location: generalized Qualified Code(s): R10.84 - Generalized abdominal pain (2) Gastroenteritis SNOMED Code(s): 28469649 Code(s): K52.9 - NONINFECTIVE GASTROENTERITIS AND COLITIS, UNSPECIFIED Status: Suspected Priority: High Current Visit: Yes (3) Ileus, unspecified SNOMED Code(s): 42174842 Code(s): K56.7 - ILEUS, UNSPECIFIED Status: Acute Priority: High Current Visit: Yes (4) Nausea & vomiting SNOMED Code(s): 36096544 Code(s): R11.2 - NAUSEA WITH VOMITING, UNSPECIFIED Status: Resolved Priority: High Current Visit: Yes QualifierTitle: Vomiting type: unspecified Vomiting Intractability: non- intractable Qualified Code(s): R11.2 - Nausea with vomiting, unspecified (5) Hypokalemia SNOMED Code(s): 78102345 Code(s): E87.6 - HYPOKALEMIA Status: Acute Priority: High Current Visit : Yes - Problem List Review Problem List Initiated/Reviewed/Updated: Yes - My Orders Last 24 Hours: My Active Orders 06/05/17 21:40 Ambulate [RC] ASDIRECTED Height and Weight [RC] 28 December Shower [RC] ASDIRECTED Up ad Dhara [RC] ASDIRECTED Consult to Case Management [CONS] Routine Consult to Patent Paralegal [CONS] Routine Acetaminophen [Tylenol] 650 mg RECTAL Q4H PRN Ketorolac [Toradol] 30 mg IV Q6H PRN Morphine 2 mg IVPUSH Q2H PRN Ondansetron [Zofran] 4 mg IV Q4H PRN Resuscitation Status Routine 06/05/17 21:41 Patient Status [ADT] Routine Oxygen Therapy [RC] PRN VTE/DVT Education [RC] DAILY Vital Signs [RC] 00,04,08,12,16,20 06/05/17 21:42 Intake and Output [RC] 04,16 Antiembolic Hose [OM.PC] Per Unit Routine 06/05/17 21:50 Antiembolic Devices [RC] BID 06/05/17 22:00 Enoxaparin [Lovenox] 40 mg SUBCUT Q24H Pantoprazole [ProTONIX IV] 40 mg IVPUSH DAILY 06/05/17 22:39 Benzocaine [Hurricaine 20% Novi] 2 ml MUCMEM Q4H PRN 06/06/17 13:15 Potassium Chloride [KCl 10 MEQ in Water 100 ML] 10 meq Premix Bag 1 bag IV Q1H 06/06/17 13:45 Sodium Chloride 0.9% [Normal Saline] 1,000 ml IV ASDIRECTED 06/06/17 Dinner Clear Liquid Diet [DIET] - Plan Plan:: I/P: Acute: Abdominial pain - Improved -Suspect viral gastroenteritis -Suspect illius -Failed treatment once after ED discharge -Abdominal pain, N&V- improved -NG tube placed in ED for decompression- good output in ED -Tube was inadvertently pulled throughout night by patient. -At this time I feel the patient is doing well and we will hold off on replacing NG tube -NPO --> Given ice chips this AM and tolerated. Will advance diet to clear liquids. -Zofran for nausea -Hurricane spray for NG tube discomfort - DC'd -IV fluids as indicated -WBC low at 3.85-->8.27 -CRP >0.2 -Pain medications as indicated -Ambulate as tolerated -General surgery consulted in ED and report pt. can be medically managed at this point Hypokalemia -Potassium 3.3 today -Will supplement as ordered. Chronic: None Plan: Admit to medical floor for observation CM/SW for discharge planning Routine AM labs DVT/PE prophylaxis GI prophylaxis Patient is very mobile - hold off PT/OT for now Other orders as indicated above Code status: Full Code; No PCP. <Valerie Gan - Last Filed: 06/06/17 18:48> - Patient Data Vitals - Most Recent: Last Vital Signs Temp 36.4 C 06/06/17 16:27 Pulse 69 06/06/17 16:27 Resp 18 06/06/17 16:27 BP 134/64 06/06/17 16:27 Pulse Ox 99 06/06/17 16:27 I&O - Last 24 Hours: Intake & Output 06/06/17 06/06/17 06/06/17 06:59 14:59 22:59 Intake Total 0 611 Output Total 400 Balance -400 611 Lab Results Last 24 Hours: Laboratory Results - last 24 hr 06/06/17 06/06/17 06/06/17 Range/Units 05:06 05:06 05:06 WBC 8.27 (4.23-9.07) K/mm3 RBC 6.60 H (4.63-6.08) M/mm3 Hgb 13.7 (13.7-17.5) gm/L Hct 40.2 (40.1-51.0) % MCV 60.9 L (79.0-92.2) fl MCH 20.8 L (25.7-32.2) pg MCHC 34.1 (32.2-35.5) g/dl RDW Std Deviation 34.2 L (35.1-43.9) fL Plt Count 191 (163-337) K/mm3 MPV TNP Neut % (Auto) 74.3 H (34.0-67.9) % Lymph % (Auto) 17.4 L (21.8-53.1) % [place] % (Auto) 8.2 (5.3-12.2) % Eos % (Auto) 0 L (0.8-7.0) Baso % (Auto) 0.0 L (0.1-1.2) % Neut # (Auto) 6.14 H (1.78-5.38) K/mm3 Lymph # (Auto) 1.44 (1.32-3.57) K/mm3 [place] # (Auto) 0.68 (0.30-0.82) K/mm3 Eos # (Auto) 0.00 L (0.04-0.54) K/mm3 Baso # (Auto) 0.00 L (0.01-0.08) K/mm3 Manual Slide Review Abnormal smear Sodium 142 (136-145) mEq/L Potassium 3.3 L (3.5-5.1) mEq/L Chloride 106 (98-107) mEq/L Carbon Dioxide 24 (21-32) mEq/L Anion Gap 15.3 H (5-15) BUN 11 (7-18) mg/dL Creatinine 1.0 (0.7-1.3) mg/dL Est Cr Clr Drug Dosing 114.00 mL/min Estimated GFR (MDRD) > 60 (>60) mL/min BUN/Creatinine Ratio 11.0 L (14-18) Glucose 104 (74-106) mg/dL Calcium 8.9 (8.5-10.1) mg/dL Magnesium 1.8 (1.8-2.4) mg/dl C-Reactive Protein < 0.2 (<1.0) mg/dL Med Orders - Current: Current Medications Acetaminophen (Tylenol) 650 mg RECTAL Q4H PRN PRN Reason: Pain (mild 1-3) Benzocaine (Hurricaine 20% Novi) 2 ml MUCMEM Q4H PRN PRN Reason: Throat numbing/pain from NG Enoxaparin Sodium (Lovenox) 40 mg SUBCUT Q24H [facility] Last Admin: 06/05/17 23:12 Dose: 40 mg Sodium Chloride (Normal Saline) 1,000 mls @ 100 mls/hr IV ASDIRECTED [facility] Last Admin: 06/06/17 14:19 Dose: 100 mls/hr Ketorolac Tromethamine (Toradol) 30 mg IV Q6H PRN PRN Reason: Pain (moderate 4-6) Stop: 06/10/17 21:41 Last Admin: 06/06/17 03:11 Dose: 30 mg Morphine Sulfate (Morphine) 2 mg IVPUSH Q2H PRN PRN Reason: Pain (severe 7-10) Stop: 06/06/17 21:44 Ondansetron HCl (Zofran) 4 mg IV Q4H PRN PRN Reason: Nausea/Vomiting Pantoprazole Sodium (Protonix Iv) 40 mg IVPUSH DAILY [facility] Last Admin: 06/06/17 09:32 Dose: 40 mg Sodium Chloride (Saline Flush) 10 ml FLUSH ASDIRECTED PRN PRN Reason: Keep Vein Open Last Admin: 06/05/17 20:23 Dose: 10 ml Discontinued Medications Diphenhydramine HCl (Benadryl) 25 mg IVPUSH ONETIME ONE Stop: 06/05/17 19:57 Last Admin: 06/05/17 20:17 Dose: 25 mg Fentanyl (Sublimaze) 100 mcg IVPUSH ONETIME ONE Stop: 06/05/17 19:56 Last Admin: 06/05/17 20:22 Dose: 100 mcg Sodium Chloride (Normal Saline) 1,000 mls @ 250 mls/hr IV ONETIME ONE Stop: 06/05/17 23:54 Last Admin: 06/05/17 20:15 Dose: 250 mls/hr Potassium Chloride 10 meq/ (Premix) 100 mls @ 100 mls/hr IV Q1H [facility] Stop: 10/11/17 17:14 Last Admin: 06/06/17 17:28 Dose: 100 mls/hr Influenza Virus Vaccine (Pharmacy To Dose - Influenza Vaccine) 1 each IM ONETIME ONE Stop: 06/05/17 22:36 Influenza Virus Vaccine (Flulaval Quad [id number]) 60 mcg IM .ONCE ONE Stop: 06/06/17 09:01 Metoclopramide HCl (Reglan) 7.5 mg IVPUSH ONETIME ONE Stop: 06/05/17 19:57 Last Admin: 06/05/17 20:20 Dose: 7.5 mg - Plan Plan:: Advance diet slowly, DC expected 06/07.
[2017-06-06] MEDS: Enoxaparin 40 MG/0.4 ML Syringe SUBCUT SCH (22:23)
[2017-06-07] MEDS ORDERED: Acetaminophen 325 MG Tab PO PRN (06:29)
[2017-06-07] MEDS ORDERED: Ondansetron 4 MG Tab.DIS PO PRN (06:29)
[2017-06-07] MEDS ORDERED: Pantoprazole 40 MG Tab.CR PO SCH (09:00)
[2017-06-07] MEDS ORDERED: Iopamidol 612 MG/ML 100 ML Bottle IVPUSH ONE (11:40)
[2017-06-07] MEDS ORDERED: Sodium Chloride 0.9% 10 ML Syringe FLUSH PRN (11:40)
[2017-06-07] MEDS ORDERED: Diatrizoate Meglumine/Diatrizoate Sodium 37% 120 ML Bottle PO ONE (11:40)
[2017-06-07] MEDS: Sodium Chloride 0.9% 10 ML Syringe FLUSH PRN (11:50)
--- NOTE | 2017-06-07 12:42 | CT ---
CT abdomen and pelvis Technique: Multiple axial sections were obtained from above the dome of the diaphragm inferiorly through the pubic symphysis. Intravenous and oral contrast was utilized. Comparison: Previous CT exam of 06/05/17 which showed lack of good oral contrast. Findings: Mild atelectasis is seen within both lung bases. Very minimal right sided pleural effusion is seen. Liver shows no focal abnormality. Spleen appears within normal limits. Adrenal glands show no nodule. Pancreas is within normal limits. Kidneys show symmetric contrast enhancement without hydronephrosis or mass. Gallbladder shows no calcified gallstones. Aorta shows no aneurysmal dilatation. No retroperitoneal adenopathy or mesenteric abnormalities are seen. No pelvic mass or adenopathy is seen. No bowel dilatation is seen. Appendix is not definitely visualized. No inflammatory change or free fluid is seen. Bone window settings were reviewed which appear within normal limits for the patient's age. Impression: 1. No evidence of bowel obstruction. 2. Very minimal right sided pleural effusion with mild bibasilar atelectasis. 3. No additional abnormality is appreciated on CT study of the abdomen and pelvis. Diagnostic code #2
--- NOTE | 2017-06-07 15:06 | PCM.DCSUM1 ---
<Adolfo Brumfield - Last Filed: 06/07/17 15:06> Discharge Summary - Hospital Course Free Text/Narrative:: Tete Gonzalez is a 21 year old male who presented to our ED on 06/05/17 complaining of generalized abdominal pain with nausea and vomiting. He was evaluated and the symptoms appeared to resolve so he was sent home. During this inital visit an X-ray of the abdomen did reveal slightly prominent air-filled loops of small bowel within the left upper abdomen with air-fluid levels. Differential diagnosis includes focal ileus or less likely early small bowel obstruction. CT of the abdomen and pelvis was obtained, however was less than optimal as the patient was unable to take oral contrast. CT revealed slightly dilated small bowel bowel within the mid anterior abdomen containing some fecal material. This does not appear to be obstructive but could be cause by an aspiration ileus. Labs were obtained: White blood cell 3.85 and low. Hemoglobin 14.7. Hematocrit 43.3. He is slightly microcytic at 61.3. Platelet count 190, 000. Neutrophils 42%. Sodium 191. Potassium 3.6. Chloride 104. Anion gap 12.6. BUN high at 21. Creatinine 1.1. EGFR greater than 60. AST 29 ALT 56 alkaline phosphatase 70. CRP less than 0.2. Albumin 4.0. UA was negative.. The patient was treated at that time with IV pain meds and Zofran, along with some fluids. Symptoms resolved and the patient went home without any nausea or vomiting. At approximately 1830 the patient drinks some Gatorade and started to vomit with severe pain in his abdomen. He was then he returned to the ED. Pain on his return to the ED was said to be severe and sharp in nature. It was generalized to the entire abdomen does not radiate. He was afebrile and the ED. Pulse was 89. Respirations 20. BP 139/89. Pulse ox 99% on room air. He is given Reglan 7.5 mg IVP, Benadryl 25 mg IVP, and fentanyl 100 MCG IVP. A 2 view abdominal x-ray was obtained and interpreted by Dr. Magaña as showing slightly increasing gaseous dilation was in the mid abdomen presumed small bowel. These findings are somewhat confusing correlating with previous exams. Current findings suggest possibility of worsening closed-loop obstruction, although previous CT study does not definitively correlate to this finding. Consideration could be made for placement of NG tube with oral contrast been placed and repeat CT scan performed to try and clarify. Surgeon heating and air conditioning mechanic Dr. Fisher, was contacted by provider and suggested admission to medical floor for management of gastroenteritis. He agrees with NG placement and decompression. NG tube was placed in ED. He was subsequently admitted to the medical floor as an observation patient. He is a full code. He has no primary care provider. Once in our care patient was placed nothing by mouth and fluids continued. A chest x-ray was utilized to confirm NG tube placement. Overnight his NG tube was pulled. The patient suspects he may have accelerated pulled during his sleep. He was having very minimal output. Patient was advanced to ice chips and slowly advanced to full diet. He tolerated this very well. He continued to walk regularly around the unit. He did have hypokalemia on lab draw and this was supplemented. He never had a white count. CRP remained less than 0.2. A CT scan was performed today with contrast and the patient tolerated this very well. There were no signs of any obstruction. Very minimal right- sided pleural effusion as well as mild right-sided bibasilar atelectasis was noted. The patient is in no nausea, vomiting, abdominal pain, or fever today or overnight. He will be discharged home today. He does not have a primary care provider. Discussion ensued on possible primary care providers as he should establish care. We discussed Dr. Olson and he thought this would be a good option. He should follow up with Dr. Olson within 7-10 days from discharge. He was not prescribed anything as a home medication at discharge, however he does have some Zofran from his prior ED visit. His symptoms are believed to have been caused by a viral gastroenteritis. - Discharge Data Discharge Date: 06/07/17 (Admit Date 06/05/17) Discharge Disposition: Home, Self-Care 01 Condition: Good - Discharge Diagnosis/Problem(s) (1) Abdominal pain SNOMED Code(s): 25244700 ICD Code: R10.9 - UNSPECIFIED ABDOMINAL PAIN Status: Resolved Priority: High QualifierTitle: Abdominal location: generalized Qualified Code(s): R10.84 - Generalized abdominal pain (2) Gastroenteritis SNOMED Code(s): 16698000 ICD Code: K52.9 - NONINFECTIVE GASTROENTERITIS AND COLITIS, UNSPECIFIED Status: Resolved Priority: High (3) Ileus, unspecified SNOMED Code(s): 91164502 ICD Code: K56.7 - ILEUS, UNSPECIFIED Status: Resolved Priority: High (4) Nausea & vomiting SNOMED Code(s): 01511339 ICD Code: R11.2 - NAUSEA WITH VOMITING, UNSPECIFIED Status: Resolved Priority: High QualifierTitle: Vomiting type: unspecified Vomiting Intractability: non- intractable Qualified Code(s): R11.2 - Nausea with vomiting, unspecified (5) Hypokalemia SNOMED Code(s): 07741257 ICD Code: E87.6 - HYPOKALEMIA Status: Resolved Priority: High - Patient Summary/Data Consults: Consultations 06/05/17 21:40 Consult to Case Management [CONS] Routine Consult to Drum Tender [CONS] Routine - Patient Instructions Diet: Regular Diet as Tolerated Activity: As Tolerated Driving: Do Not Drive (today ) Showering/Bathing: May Shower Notify Provider of: Fever, Increased Pain, Nausea and/or Vomiting - Discharge Plan Home Medications: Home Meds Ondansetron [Zofran ODT] 4 mg PO Q6H PRN #10 tab.dis 06/05/17 [Rx] Patient Handouts: Abdominal Pain, Adult, Nausea and Vomiting, Adult Referrals: Sully Olson [Physician] - 06/15/17 9:00 am (Please check in at 8:30 am.) - Discharge Summary/Plan Comment DC Time >30 min.: Yes (45 minutes ) - General Info Date of Service: 06/07/17 Admission Dx/Problem (Free Text: Admission Diagnosis/Problem Admission Diagnosis/Problem Abdominal pain with vomiting Functional Status: Reports: Pain Controlled, Tolerating Diet, Ambulating, Urinating. Denies: New Symptoms - Review of Systems General: Reports: No Symptoms HEENT: Reports: No Symptoms Pulmonary: Reports: No Symptoms Cardiovascular: Reports: No Symptoms Gastrointestinal: Reports: No Symptoms Genitourinary: Reports: No Symptoms Musculoskeletal: Reports: No Symptoms Skin: Reports: No Symptoms Neurological: Reports: No Symptoms Psychiatric: Reports: No Symptoms Systems Review Comment: Patient reports he is feeling very good. He ate a full meal today with no nausea or abdominal pain. He's been walking regularly around the unit. He is in good spirits. - Patient Data Vitals - Most Recent: Last Vital Signs Temp 98.2 F 06/07/17 08:38 Pulse 87 06/07/17 08:38 Resp 19 06/07/17 08:38 BP 114/69 06/07/17 08:38 Pulse Ox 98 06/07/17 08:38 Weight - Most Recent: 78.109 kg I&O - Last 24 hours: Intake & Output 06/07/17 06/07/17 06/07/17 06:59 14:59 22:59 Intake Total 1431 120 Balance 1431 120 Lab Results - Last 24 hrs: Laboratory Results - last 24 hr 06/07/17 06/07/17 Range/Units 06:50 06:50 WBC 4.36 (4.23-9.07) K/mm3 RBC 6.27 H (4.63-6.08) M/mm3 Hgb 13.0 L (13.7-17.5) gm/L Hct 38.8 L (40.1-51.0) % MCV 61.9 L (79.0-92.2) fl MCH 20.7 L (25.7-32.2) pg MCHC 33.5 (32.2-35.5) g/dl RDW Std Deviation 35.0 L (35.1-43.9) fL Plt Count 178 (163-337) K/mm3 Neut % (Auto) 52.1 (34.0-67.9) % Lymph % (Auto) 37.2 (21.8-53.1) % [place] % (Auto) 9.2 (5.3-12.2) % Eos % (Auto) 1.1 (0.8-7.0) Baso % (Auto) 0.2 (0.1-1.2) % Neut # (Auto) 2.27 (1.78-5.38) K/mm3 Lymph # (Auto) 1.62 (1.32-3.57) K/mm3 [place] # (Auto) 0.40 (0.30-0.82) K/mm3 Eos # (Auto) 0.05 (0.04-0.54) K/mm3 Baso # (Auto) 0.01 (0.01-0.08) K/mm3 Manual Slide Review Abnormal smear Sodium 144 (136-145) mEq/L Potassium 3.8 (3.5-5.1) mEq/L Chloride 108 H (98-107) mEq/L Carbon Dioxide 27 (21-32) mEq/L Anion Gap 12.8 (5-15) BUN 15 (7-18) mg/dL Creatinine 1.0 (0.7-1.3) mg/dL Est Cr Clr Drug Dosing 114.00 mL/min Estimated GFR (MDRD) > 60 (>60) mL/min BUN/Creatinine Ratio 15.0 (14-18) Glucose 91 (74-106) mg/dL Calcium 8.6 (8.5-10.1) mg/dL Magnesium 1.7 L (1.8-2.4) mg/dl Med Orders - Current: Current Medications Acetaminophen (Tylenol) 650 mg PO Q6H PRN PRN Reason: Pain Enoxaparin Sodium (Lovenox) 40 mg SUBCUT Q24H [facility] Last Admin: 06/06/17 22:23 Dose: 40 mg Ondansetron HCl (Zofran) 4 mg IV Q4H PRN PRN Reason: Nausea/Vomiting Ondansetron HCl (Zofran Odt) 4 mg PO Q4H PRN PRN Reason: Nausea/Vomiting Pantoprazole Sodium (Protonix) 40 mg PO DAILY [facility] Last Admin: 06/07/17 10:08 Dose: 40 mg Sodium Chloride (Saline Flush) 10 ml FLUSH ASDIRECTED PRN PRN Reason: Keep Vein Open Last Admin: 06/07/17 11:50 Dose: 10 ml Discontinued Medications Acetaminophen (Tylenol) 650 mg RECTAL Q4H PRN PRN Reason: Pain (mild 1-3) Benzocaine (Hurricaine 20% [place]) 2 ml MUCMEM Q4H PRN PRN Reason: Throat numbing/pain from NG Diatrizoate Meglum/Diatrizoate Sod (Gastrografin 37%) 90 ml PO ONETIME ONE Stop: 06/07/17 11:41 Last Admin: 06/07/17 11:49 Dose: 90 ml Diphenhydramine HCl (Benadryl) 25 mg IVPUSH ONETIME ONE Stop: 06/05/17 19:57 Last Admin: 06/05/17 20:17 Dose: 25 mg Fentanyl (Sublimaze) 100 mcg IVPUSH ONETIME ONE Stop: 06/05/17 19:56 Last Admin: 06/05/17 20:22 Dose: 100 mcg Sodium Chloride (Normal Saline) 1,000 mls @ 250 mls/hr IV ONETIME ONE Stop: 06/05/17 23:54 Last Admin: 06/05/17 20:15 Dose: 250 mls/hr Potassium Chloride 10 meq/ (Premix) 100 mls @ 100 mls/hr IV Q1H [facility] Stop: 06/06/17 17:14 Last Admin: 06/06/17 17:28 Dose: 100 mls/hr Sodium Chloride (Normal Saline) 1,000 mls @ 100 mls/hr IV ASDIRECTED [facility] Last Admin: 06/06/17 23:56 Dose: 100 mls/hr Influenza Virus Vaccine (Pharmacy To Dose - Influenza Vaccine) 1 each IM ONETIME ONE Stop: 06/05/17 22:36 Influenza Virus Vaccine (Flulaval Quad [id number]) 60 mcg IM .ONCE ONE Stop: 06/06/17 09:01 Iopamidol (Isovue-300 (61%)) 100 ml IVPUSH ONETIME ONE Stop: 06/07/17 11:41 Last Admin: 06/07/17 11:50 Dose: 100 ml Ketorolac Tromethamine (Toradol) 30 mg IV Q6H PRN PRN Reason: Pain (moderate 4-6) Stop: 06/10/17 21:41 Last Admin: 06/06/17 03:11 Dose: 30 mg Metoclopramide HCl (Reglan) 7.5 mg IVPUSH ONETIME ONE Stop: 06/05/17 19:57 Last Admin: 06/05/17 20:20 Dose: 7.5 mg Morphine Sulfate (Morphine) 2 mg IVPUSH Q2H PRN PRN Reason: Pain (severe 7-10) Stop: 06/06/17 21:44 Pantoprazole Sodium (Protonix Iv) 40 mg IVPUSH DAILY [facility] Last Admin: 06/06/17 09:32 Dose: 40 mg Sodium Chloride (Saline Flush) 10 ml FLUSH ONETIME PRN PRN Reason: IV FLUSH Stop: 06/07/17 13:00 - Exam Quality Assessment: Reports: DVT Prophylaxis General: Reports: Alert, Oriented, Cooperative HEENT: Reports: Pupils Equal, Pupils Reactive, Mucous Membr. Moist/[place] Neck: Reports: Supple, Trachea Midline, No JVD, No Thyromegaly Lungs: Reports: Clear to Auscultation, Normal Respiratory Effort Cardiovascular: Reports: Regular Rate, Regular Rhythm, No Murmurs GI/Abdominal Exam: Normal Bowel Sounds, Soft, Non-Tender, No Organomegaly, No Distention, No Abnormal Bruit, No Mass (Male) Exam: Deferred Rectal (Males) Exam: Deferred Back Exam: Reports: Normal Inspection, Full Range of Motion Extremities: Normal Inspection, Normal Range of Motion, Non-Tender, No Pedal Edema, Normal Capillary Refill Skin: Reports: Warm, Dry, Intact Neurological: Reports: No New Focal Deficit, Normal Gait, Normal Speech, Normal Tone, Strength Equal Bilateral, Sensation Intact Psy/Mental Status: Reports: Alert, Normal Affect, Normal Mood Physical Findings Comments:: No concerns were noted during exam. Patient examined while sitting in hospital bed. Labs looked good. *Q Meaningful Use (DIS) - VTE *Q VTE Criteria *Q: - Stroke *Q Stroke Criteria *Q: - AMI *Q AMI Criteria *Q: <Valerie Gan - Last Filed: 06/08/17 14:02> Discharge Summary - Hospital Course Free Text/Narrative:: Established care and hospital discharge follow up was strongly encouraged; detailed DC summary as above. - Patient Summary/Data Consults: Consultations 06/05/17 21:40 Consult to Case Management [CONS] Routine Consult to Drum Tender [CONS] Routine - Patient Data Vitals - Most Recent: Last Vital Signs Temp 36.9 C 06/07/17 12:28 Pulse 72 06/07/17 12:28 Resp 0 L 06/07/17 12:28 BP 121/90 06/07/17 12:28 Pulse Ox 99 06/07/17 12:28 I&O - Last 24 hours: Intake & Output 06/07/17 06/08/17 06/08/17 22:59 06:59 14:59 Intake Total 1320 Balance 1320 Med Orders - Current: Current Medications Discontinued Medications Acetaminophen (Tylenol) 650 mg RECTAL Q4H PRN PRN Reason: Pain (mild 1-3) Acetaminophen (Tylenol) 650 mg PO Q6H PRN PRN Reason: Pain Benzocaine (Hurricaine 20% [place]) 2 ml MUCMEM Q4H PRN PRN Reason: Throat numbing/pain from NG Diatrizoate Meglum/Diatrizoate Sod (Gastrografin 37%) 90 ml PO ONETIME ONE Stop: 06/07/17 11:41 Last Admin: 06/07/17 11:49 Dose: 90 ml Diphenhydramine HCl (Benadryl) 25 mg IVPUSH ONETIME ONE Stop: 06/05/17 19:57 Last Admin: 06/05/17 20:17 Dose: 25 mg Enoxaparin Sodium (Lovenox) 40 mg SUBCUT Q24H [facility] Last Admin: 06/06/17 22:23 Dose: 40 mg Fentanyl (Sublimaze) 100 mcg IVPUSH ONETIME ONE Stop: 06/05/17 19:56 Last Admin: 06/05/17 20:22 Dose: 100 mcg Sodium Chloride (Normal Saline) 1,000 mls @ 250 mls/hr IV ONETIME ONE Stop: 06/05/17 23:54 Last Admin: 06/05/17 20:15 Dose: 250 mls/hr Potassium Chloride 10 meq/ (Premix) 100 mls @ 100 mls/hr IV Q1H [facility] Stop: 06/06/17 17:14 Last Admin: 06/06/17 17:28 Dose: 100 mls/hr Sodium Chloride (Normal Saline) 1,000 mls @ 100 mls/hr IV ASDIRECTED [facility] Last Admin: 06/06/17 23:56 Dose: 100 mls/hr Influenza Virus Vaccine (Pharmacy To Dose - Influenza Vaccine) 1 each IM ONETIME ONE Stop: 06/05/17 22:36 Influenza Virus Vaccine (Flulaval Quad [id number]) 60 mcg IM .ONCE ONE Stop: 06/06/17 09:01 Iopamidol (Isovue-300 (61%)) 100 ml IVPUSH ONETIME ONE Stop: 06/07/17 11:41 Last Admin: 06/07/17 11:50 Dose: 100 ml Ketorolac Tromethamine (Toradol) 30 mg IV Q6H PRN PRN Reason: Pain (moderate 4-6) Stop: 06/10/17 21:41 Last Admin: 06/06/17 03:11 Dose: 30 mg Metoclopramide HCl (Reglan) 7.5 mg IVPUSH ONETIME ONE Stop: 06/05/17 19:57 Last Admin: 06/05/17 20:20 Dose: 7.5 mg Morphine Sulfate (Morphine) 2 mg IVPUSH Q2H PRN PRN Reason: Pain (severe 7-10) Stop: 06/06/17 21:44 Ondansetron HCl (Zofran) 4 mg IV Q4H PRN PRN Reason: Nausea/Vomiting Ondansetron HCl (Zofran Odt) 4 mg PO Q4H PRN PRN Reason: Nausea/Vomiting Pantoprazole Sodium (Protonix Iv) 40 mg IVPUSH DAILY [facility] Last Admin: 06/06/17 09:32 Dose: 40 mg Pantoprazole Sodium (Protonix) 40 mg PO DAILY [facility] Last Admin: 06/07/17 10:08 Dose: 40 mg Sodium Chloride (Saline Flush) 10 ml FLUSH ASDIRECTED PRN PRN Reason: Keep Vein Open Last Admin: 06/07/17 11:50 Dose: 10 ml Sodium Chloride (Saline Flush) 10 ml FLUSH ONETIME PRN PRN Reason: IV FLUSH Stop: 06/07/17 13:00 *Q Meaningful Use (DIS) - VTE *Q VTE Criteria *Q: - Stroke *Q Stroke Criteria *Q: - AMI *Q AMI Criteria *Q:
[2017-06-07 18:31] VITALS: BP 121/90
== END 2017-06-07 16:16 | disposition home or self-care (01) ==
LOC: JD.ED 19:39 → JD.MS 21:37
PROVIDERS: ADMIT Hospitalist; ATTEND Hospitalist
DX: K52.9 Noninfective gastroenteritis and colitis, unspecified (principal); K56.7 Ileus, unspecified; E87.6 Hypokalemia; J90 Pleural effusion, not elsewhere classified; J98.11 Atelectasis; R10.84 Generalized abdominal pain; R11.2 Nausea with vomiting, unspecified
CPT/HCPCS: 36415; 71010; 74020; 74177; 80048; 80053; 81001; 83690; 83735; 85025; 86140; 96361; 96365; 96366; 96372; 96374; 96375; 96376; 99285; A9270; C9113; G0378; J1170; J1200; J1650; J1885; J2405; J2765; J3010; J3480; J7040; J7050; Q9967

== ENCOUNTER 2018-05-25 11:49 | Emergency (ER) | payer BC ==
[2018-05-25 12:07] VITALS: BP 149/101
[2018-05-25] MEDS ORDERED: Famotidine 20 MG/2 ML SDV IVPUSH ONE (12:18)
[2018-05-25] MEDS ORDERED: Dicyclomine 20 MG/2 ML SDV IM ONE (12:18)
[2018-05-25] MEDS ORDERED: Sodium Chloride 0.9% 10 ML Syringe FLUSH PRN (12:18)
[2018-05-25] MEDS ORDERED: Sodium Chloride 0.9% 1,000 ML IV ONE (12:18)
--- NOTE | 2018-05-25 12:25 | EDM.PDOC ---
ED HPI GENERAL MEDICAL PROBLEM - General Chief Complaint: Abdominal Pain Stated Complaint: ABDOMINAL PAIN Time Seen by Provider: 05/25/18 12:08 Source of Information: Reports: Patient, Old Records History Limitations: Reports: No Limitations - History of Present Illness INITIAL COMMENTS - FREE TEXT/NARRATIVE: 32-year-old male presents for evaluation and treatment of abdominal pain. Patient reports the pain has been present for the last 3 days. Reports it is a cramping sensation rates the pain as an 8 or 9 out of 10 at this time. He states that it came on gradually. Reports that his entire abdomen is involved and is not localized to one area. Nothing seems to make the pain worse such as movement. He did eat this morning, had a sandwich and that did not seem to worsen the pain. He denies any nausea. Reports that he vomited the first day but states that he was also forced himself to vomit at this time. He denies any diarrhea or constipation. Reports that his last bowel movement was this morning. No melena or hematochezia. No fevers, chills, dysuria or change in urine odor color. Denies any recent upper respiratory illness such as earaches, throat pain or cough. No recent travel. No contacts. No previous abdominal surgeries. Review of the patient's record shows he was seen in May 2017 with similar symptoms. He was ultimately admitted for observation and diagnosed with an ileus and gastroenteritis. He reports that the pain feels similar today but is not as intense as it was a year ago. No primary care provider. Duration: Day(s): (3) Abdominal Pain Score (Numeric/FACES): 8 - Related Data Allergies Allergy/AdvReac Type Severity Reaction Status Date / Time No Known Allergies Allergy Verified 05/25/18 12:03 Home Meds: Home Meds Ondansetron [Zofran ODT] 4 mg PO Q6H PRN #10 tab.dis 06/05/17 [Rx] Dicyclomine [Bentyl] 20 mg PO TID PRN #20 tab 05/25/18 [Rx] Ondansetron [Zofran ODT] 4 mg PO Q6H PRN #20 tab.dis 05/25/18 [Rx] Past Medical History - Past Health History Medical/Surgical History: Denies Medical/Surgical History - Infectious Disease History Infectious Disease History: Reports: Chicken Pox Social & Family History - Family History Family Medical History: Noncontributory - Caffeine Use Caffeine Use: Reports: Coffee ED ROS GENERAL - Review of Systems Review Of Systems: See Below Constitutional: Denies: Fever, Chills, Decreased Appetite HEENT: Denies: Ear Pain, Throat Pain Respiratory: Denies: Cough GI/Abdominal: Reports: Abdominal Pain (generalized, cramping pain). Denies: Constipation, Diarrhea, Decreased Appetite, Hematochezia, Melena, Nausea, Vomiting (foced day 1 of illness but has resolved) : Reports: No Symptoms. Denies: Dysuria ED EXAM, GI/ABD - Physical Exam Exam: See Below Exam Limited By: No Limitations General Appearance: Alert, WD/WN, No Apparent Distress Ears: Normal External Exam Nose: Normal Inspection Throat/Mouth: Normal Inspection, Normal Lips, Normal Oropharynx, Normal Voice, No Airway Compromise Neck: Normal Inspection. No: Lymphadenopathy (L), Lymphadenopathy (R) Respiratory/Chest: No Respiratory Distress, Lungs Clear, Normal Breath Sounds Cardiovascular: Normal Peripheral Pulses, Regular Rate, Rhythm, No Murmur GI/Abdominal Exam: Normal Bowel Sounds, Soft, Non-Tender, Other (No pain at McBurney's point. Negative psoas and obturator sign. No pain with heel percussion.). No: Guarding, Rigid, Rebound Neurological: Alert, Oriented, Normal Cognition Psychiatric: Normal Affect, Normal Mood Skin Exam: Warm, Dry, Normal Color Course - Vital Signs Last Recorded V/S: Last Vital Signs Temp 98.0 F 05/25/18 12:03 Pulse 79 05/25/18 12:03 Resp 16 05/25/18 12:03 BP 149/101 H 05/25/18 12:03 Pulse Ox 99 05/25/18 12:03 - Orders/Labs/Meds Labs: Laboratory Tests 05/25/18 05/25/18 05/25/18 Range/Units 12:20 12:20 14:11 WBC 5.14 (4.23-9.07) K/mm3 RBC 7.13 H (4.63-6.08) M/mm3 Hgb 14.6 (13.7-17.5) gm/L Hct 43.2 (40.1-51.0) % MCV 60.6 L (79.0-92.2) fl MCH 20.5 L (25.7-32.2) pg MCHC 33.8 (32.2-35.5) g/dl RDW Std Deviation 34.1 L (35.1-43.9) fL Plt Count 209 (163-337) K/mm3 Neutrophils % (Manual) 46 (40-60) % Band Neutrophils % 0 (0-10) % Lymphocytes % (Manual) 48 H (20-40) % Atypical Lymphs % 0 % Monocytes % (Manual) 6 (2-10) % Eosinophils % (Manual) 0 L (0.8-7.0) % Basophils % (Manual) 0 L (0.2-1.2) Differential Comment See note Platelet Estimate Adequate Hypochromasia 2+ moderate Anisocytosis 2+ moderate Microcytosis 2+ moderate RBC Morph Comment Not Reportable Sodium 139 (136-145) mEq/L Potassium 3.6 (3.5-5.1) mEq/L Chloride 101 (98-107) mEq/L Carbon Dioxide 28 (21-32) mEq/L Anion Gap 13.6 (5-15) BUN 14 (7-18) mg/dL Creatinine 1.1 (0.7-1.3) mg/dL Est Cr Clr Drug Dosing 102.68 mL/min Estimated GFR (MDRD) > 60 (>60) mL/min BUN/Creatinine Ratio 12.7 L (14-18) Glucose 101 (74-106) mg/dL Calcium 9.3 (8.5-10.1) mg/dL Magnesium 1.9 (1.8-2.4) mg/dl Total Bilirubin 1.4 H (0.2-1.0) mg/dL AST 28 (15-37) U/L ALT 45 (16-63) U/L Alkaline Phosphatase 90 (46-116) U/L C-Reactive Protein < 0.2 (<1.0) mg/dL Total Protein 7.8 (6.4-8.2) g/dl Albumin 4.3 (3.4-5.0) g/dl Globulin 3.5 gm/dL Albumin/Globulin Ratio 1.2 (1-2) Lipase 130 (73-393) U/L Urine Color Yellow (Yellow) Urine Appearance Clear (Clear) Urine pH 6.5 (5.0-8.0) Ur Specific Point > or = 1.030 (1.005-1.030) Urine Protein Negative (Negative) Urine Glucose (UA) Negative (Negative) Urine Ketones Negative (Negative) Urine Occult Blood Negative (Negative) Urine Nitrite Negative (Negative) Urine Bilirubin Negative (Negative) Urine Urobilinogen 0.2 (0.2-1.0) Ur Leukocyte Esterase Negative (Negative) Urine RBC 0-5 (0-5) /hpf Urine WBC 0-5 (0-5) /hpf Ur Epithelial Cells 0-5 (0-5) /hpf Amorphous Sediment Few H (NOT SEEN) /hpf Urine Bacteria Few (FEW) /hpf Urine Mucus Few (FEW) /hpf Meds: Medications Discontinued Medications Generic Name Dose Route Start Last Admin Trade Name Freq PRN Reason Stop Dose Admin Al Hydroxide/Mg Hydroxide 30 0 ml 05/25/18 15:02 05/25/18 15:13 ml/ Lidocaine HCl 15 ml PO 05/25/18 15:03 30 ml ONETIME ONE Administration Dicyclomine HCl 20 mg 05/25/18 12:18 05/25/18 12:38 Bentyl IM 05/25/18 12:19 20 mg ONETIME ONE Administration Famotidine 20 mg 05/25/18 12:18 05/25/18 12:38 Pepcid IVPUSH 05/25/18 12:19 20 mg ONETIME ONE Administration Sodium Chloride 1,000 mls @ 999 mls/hr 05/25/18 12:18 05/25/18 12:37 Normal Saline IV 05/25/18 13:18 999 mls/hr ONETIME ONE Administration Ondansetron HCl 4 mg 05/25/18 13:19 05/25/18 13:25 Zofran IVPUSH 05/25/18 13:20 4 mg ONETIME ONE Administration Sodium Chloride 10 ml 05/25/18 12:18 05/25/18 12:38 Saline Flush FLUSH 10 ml ASDIRECTED PRN Administration Keep Vein Open - Radiology Interpretation Free Text/Narrative:: Abdominal xray shows no obvious signs of bowel obstruction, few air fluids lines to suggest possible ileus. Reviewed by myself and Dr. Niraj Martinez. Formal radiology read pending. - Re-Assessments/Exams Free Text/Narrative Re-Assessment/Exam: 05/25/18 15:00 I reviewed the labs and imaging with the patient. I will discharge him home today. Recommend close follow-up with the clinic. Recommendations given for symptomatic care. Will prescribe Bentyl and Zofran. Discharge instructions as documented. Departure - Departure Time of Disposition: 15:03 Disposition: Home, Self-Care 01 Condition: Fair Clinical Impression: Abdominal pain, Gastroenteritis - Discharge Information *PRESCRIPTION DRUG MONITORING PROGRAM REVIEWED*: No *COPY OF PRESCRIPTION DRUG MONITORING REPORT IN PATIENT ANGEL: No Prescriptions: Dicyclomine [Bentyl] 20 mg PO TID PRN #20 tab PRN Reason: Abdominal Pain Ondansetron [Zofran ODT] 4 mg PO Q6H PRN #20 tab.dis PRN Reason: Nausea Instructions: Viral Gastroenteritis, Adult, [id number], Abdominal Pain, Adult , [id number] Referrals: PCP,None [Primary Care Provider] - Shayan Jarquin PA-C [Physician Mat Linker] - Forms: ED Department Discharge Additional Instructions: Recommend clear fluids today. May advance to a bland diet tomorrow as tolerated. [place] diet recommendations include crackers, soup broth, bread, bananas or yogurt. Take the Bentyl 1 tab 3 times a day as needed for abdominal pain and cramping. may take [id number] Tylenol or Motrin as needed for additional pain relief. Zofran 1 tab sublingual every 6 hours as needed for nausea. Recommend starting a probiotic, These are available [id number]. Follow up in the clinic early this week for recheck of your symptoms. At the [facility] recommend Shayan Jarquin or Elana Mukherjee. Call [phone] to schedule with one of these providers. Please return to ER if your symptoms change or worsen.
[2018-05-25] MEDS ORDERED: Ondansetron 4 MG/2 ML SDV IVPUSH ONE (13:19)
[2018-05-25] MEDS ORDERED: Alum Hydrox/Mag Hydrox/Simeth 30 ML, Lidocaine 2% 15 ML PO ONE ×2 (15:02)
--- NOTE | 2018-05-26 17:18 | CR ---
Abdomen: Supine and upright views of the abdomen were obtained. Comparison: Prior CT abdomen and pelvis exam performed on 06/07/17. Prior abdominal x-ray of 06/05/17 is also available. Scattered gas within small bowel and colon is seen which appears within normal limits. No free air is seen. Scattered air-fluid levels seen within the right colon which can be seen normally. Bony structures appear within normal limits. No abnormal calcifications or discrete soft tissue abnormality is appreciated. Impression: 1. Nothing acute seen on two-view abdominal x-ray. Diagnostic code #1
== END 2018-05-25 15:30 | disposition home or self-care (01) ==
LOC: JD.ED 11:49
DX: K52.9 Noninfective gastroenteritis and colitis, unspecified (principal)
CPT/HCPCS: 36415; 74019; 80053; 81001; 83690; 83735; 85007; 85027; 86140; 96361; 96372; 96374; 96375; 99284; A9270; J0500; J2405; J3490; J7040; J7050